=== PATIENT | female | born 1935 | race Asian ===

== ENCOUNTER → 2019-12-19 | Outpatient (RCR) | payer BC, OTHER ==
[~2019-12-19] MED LIST: ALENDRONAT70 MG/75 M PO; ASPIRIN-LOW81 MG ORAL; LINZESS145 MCG PO; MONTELUKAST SOD10 MG ORAL; NKM; NORVASC5 MG ORAL; STOOL SOFTENER250 MG PO; VESICARE10 MG ORAL
== END | disposition home or self-care (01) ==
LOC: WCC 13:52
DX: L98.499 Non-pressure chronic ulcer of skin of other sites with unspecified severity (principal)

== ENCOUNTER 2019-12-20 10:21 | Outpatient (RCR) | payer BC, OTHER | END 2020-01-18 | disposition home or self-care (01) | LOC: WCC 10:21 | DX: L97.514 Non-pressure chronic ulcer of other part of right foot with necrosis of bone (principal); Z95.0 Presence of cardiac pacemaker; I11.9 Hypertensive heart disease without heart failure; I51.9 Heart disease, unspecified; I73.9 Peripheral vascular disease, unspecified | CPT/HCPCS: G0277 ×20 ==

== ENCOUNTER 2020-01-26 08:30 | Outpatient (RCR) | payer BC, OTHER | END 2020-02-18 | disposition home or self-care (01) | LOC: WCC 08:30 | DX: L97.514 Non-pressure chronic ulcer of other part of right foot with necrosis of bone (principal); I11.9 Hypertensive heart disease without heart failure; Z95.0 Presence of cardiac pacemaker | CPT/HCPCS: G0277 ×2 ==